=== PATIENT | female | born 1980 | race Caucasian/White ===

== ENCOUNTER → 2019-06-19 14:15 | Outpatient (BNVA) | payer OTHER, SELFPAY | PROVIDERS: Family Provider Nurse Practitioner; Visit Provider Family Medicine | DX: Z20.828 Contact with and (suspected) exposure to other viral communicable diseases (principal) | CPT/HCPCS: 87635 ==

== ENCOUNTER → 2019-07-03 13:43 | Outpatient (BNVA) | payer OTHER, SELFPAY | PROVIDERS: Family Provider Nurse Practitioner; Visit Provider Family Medicine | DX: Z20.828 Contact with and (suspected) exposure to other viral communicable diseases (principal) | CPT/HCPCS: 87635 ==

== ENCOUNTER → 2019-07-08 15:40 | Outpatient (BNVA) | payer OTHER, SELFPAY | PROVIDERS: Family Provider Nurse Practitioner; Visit Provider Family Medicine | DX: Z20.828 Contact with and (suspected) exposure to other viral communicable diseases (principal) | CPT/HCPCS: 87635 ==

== ENCOUNTER → 2019-07-20 10:00 | Outpatient (BNVA) | payer OTHER, SELFPAY | PROVIDERS: Family Provider Nurse Practitioner; Visit Provider Family Medicine | DX: Z20.828 Contact with and (suspected) exposure to other viral communicable diseases (principal) | CPT/HCPCS: 87635 ==

== ENCOUNTER → 2019-07-22 16:40 | Outpatient (BNVA) | payer OTHER, SELFPAY | PROVIDERS: Family Provider Nurse Practitioner; Visit Provider Emergency Medicine | DX: R05 Cough (principal); R50.9 Fever, unspecified; R06.02 Shortness of breath | CPT/HCPCS: 71046 ==

== ENCOUNTER 2019-07-23 18:42 | Emergency (ER) | payer OTHER, SELFPAY ==
--- NOTE | 2019-07-23 18:52 | XR_ITS ---
WS: [id number] CHEST 2 VIEWS HISTORY: Acute onset chest pain. COMPARISON: 07/22/2019 Lungs: Clear with no abnormality. No pleural effusion or pneumothorax. Cardiac size: Normal. Mediastinum/Aorta: Densely calcified lymph nodes at the RIGHT hilum. There is an additional calcifica tion projecting over the RIGHT upper abdomen. This is calcification probably within the liver. Bones: RIGHT convex curvature thoracolumbar spine. XR/XR chest 2V* [id number] IMPRESSION: Stable chest with no acute cardiopulmonary disease.
[2019-07-23 18:56] VITALS: BP 128/97; PULSE 106; RESP 19; TEMP 36.7; O2SAT 99; BMI 29.2
[2019-07-23 19:06] VITALS: BP 128/97; RESP 98; O2SAT 97
--- NOTE | 2019-07-23 19:20 | ED_ITS ---
HPI - SOB/Dyspnea General: Chief Complaint: Shortness of Breath/Dyspnea Stated Complaint: not feeling well post covid Time Seen by Provider: 07/23/19 19:05 History of Present Illness: HPI Narrative: 47-year-old female that just does not feel right . She was told to come to the ER by physician communication assistant and Eduard Perez. She was seen by this physician communication assistant yesterday in the office and had a chest x-ray was called today and told that it was normal and since she still was not feeling well to go to the ER. She tested positive for COVID-19 in late May or early June she was retested for times in total and tested negative yesterday. She is occasionally short of breath she is a smoker she has an inhaler at home that she occasionally uses. She has had an occasional cough over the last month or so it is not worsened. No fever. She states that her head and her body just feel off like they are in the clouds. She complains of sinus pressure and fullness especially when she bends over. No thick nasal drainage no history of sinus surgery. She was started on amoxicillin last week based on her symptoms of cough and shortness of breath by the PCP and Eduard Perez. MD elicited complaint: shortness of breath and cough Associated symptoms: Reports dizziness; Deny abdominal pain, chest pain, fever(s), nausea, polyuria or vomiting Review of Systems General: Reports: 10 or more systems reviewed and unremarkable except in HPI and below Const: Denies: fever(s) or chills Eyes: Denies: change in vision ENMT: Reports: nasal congestion; Denies: throat pain Card: Denies: chest pain Resp: Reports: dyspnea and productive cough GI: Denies: abdominal pain, nausea, vomiting or change in bowel habits : Denies: difficulty voiding Musc: Denies: muscle weakness Skin/Breast: Denies: rash Neuro: Reports: dizziness; Denies: headache(s) Psych: Denies: hopelessness or suicidal ideation Endo: Denies: polyuria Beau/Lymph: Denies: easy bruising or easy bleeding All/Imm: Denies: urticaria PFSH ED PFSH: Social History Smoking and tobacco status: current every day smoker Physical Exam Const: COMMON NORMALS: no acute distress, patient oriented x3, alert and well nourished HENMT: COMMON NORMALS: normocephalic and Normal external nose present HEAD & SCALP: normocephalic NOSE: Normal external nose present MOUTH: no trismus OTHER: Has some sinus tenderness to palpation over her frontal and m axillary sinuses Eye: COMMON NORMALS: EOMs intact bilaterally and conjunctivae normal CONJUNCTIVA: Yes conjunctivae normal Neck/C-Spine: COMMON NORMALS: full ROM, no lymphadenopathy and supple CERVICAL SPINE: Yes cervical ROM normal Lymph: LYMPHATIC: no lymphadenopathy noted Resp: COMMON NORMALS: normal respiratory effort, No retractions, No use of accessory muscles and clear to auscultation bilaterally EFFORT & INSPECTION: Yes able to speak in complete sentences AUSCULTATION: clear to auscultation bilaterally Cardio: COMMON NORMALS: regular rate and regular rhythm RATE: regular rate RHYTHM: regular rhythm GI: COMMON NORMALS: Normal to inspection, nondistended, normoactive bowel sounds present, Soft to palpation, non-tender and no masses INSPECTION: Yes normal to inspection AUSCULTATION: Yes normoactive bowel sounds PALPATION: Yes Soft to palpation, No Guarding due to palpation present (GI) and No Rigid due to palpation Back/Pelvis: OTHER: Normal range of motion Extremity: GENERAL: Yes normal exam except as noted Neuro: COMMON NORMALS: patient oriented x3 and CN's II-XII intact bilaterally SENSORIUM/ORIENTATION: Yes alert SPEECH: speech normal Psych: COMMON NORMALS: mental status grossly normal Skin: COMMON NORMALS: no rashes or lesions noted GENERAL SKIN EXAM: no rashes or lesions noted Course Vital Signs: Vital signs: Vital Signs Temperature 98.1 F 07/23/19 18:56 Pulse Rate 106 H 07/23/19 18:56 Respiratory Rate 98 H 07/23/19 19:06 Blood Pressure 128/97 07/23/19 19:06 Pulse Oximetry 97 07/23/19 19:06 MDM - SOB/Dyspnea MDM Narrative: Medical decision making narrative: Went to update patient on her lab results and CT results including the dental caries on CT scan. She now tells me that she was taken off the amoxicillin and started on Levaquin for presumed infection. I told her we will put her back on amoxicillin for dental caries and she needs to follow-up with a dentist. She can stop the Levaquin. She states she understands and will do that she is nontoxic and [id number] at this time she still feels under the weather and I explained that it is still likely part of her recovery from COVID-19 even though she tested negative does not mean that she is back to 100%. Lab Data: Attestation: I reviewed the patient's lab results. Labs: Lab Results 07/23/19 07/23/19 Range/Units 19:45 19:45 WBC 8.2 (4.0-10.0) 10^3/ uL RBC 4.85 (4.1-5.3) 10^6/u L Hgb 14.1 (11.5-15.3) g/dL Hct 44.8 (37.0-47.0) % MCV 92.4 (81-99) fL MCH 29.1 (28.0-34.0) pg MCHC 31.5 (30.0-36.0) g/dL RDW 12.8 (12.1-15.1) % Plt Count 366 (130-400) 10^3/c mm MPV 11.3 H (7.4-10.4) fL Neut % (Auto) 55.0 % Lymph % (Auto) 32.8 % [place] % (Auto) 9.5 % Eos % (Auto) 2.1 % Baso % (Auto) 0.5 % Neut # (Auto) 4.5 (1.8-7.7) 10^3/u L Lymph # (Auto) 2.7 (0.8-4.8) 10^3/u L [place] # (Auto) 0.8 (0.2-0.9) 10^3/u L Eos # (Auto) 0.2 (0.0-0.8) 10^3/u L Baso # (Auto) 0.0 (0.0-0.1) 10^3/u L Nucleated RBC % (a uto) 0 % Nucleated RBCs # 0.0 /100WBC Sodium 139 (136-145) mmol/L Potassium 4.0 (3.5-5.1) mmol/L Chloride 102 (98-107) mmol/L Carbon Dioxide 26 (22-29) mmol/L Anion Gap 15.0 (5-19) BUN 7 (6-20) mg/dL Creatinine 0.8 (0.5-0.9) mg/dL GFR Calculation 79.4 L (90-130) mL/min Glucose 85 (65-115) mg/dL Calculated Osmolal ity 283 L (285-295) mOsm/k g Calcium 9.1 (8.5-10.5) mg/dL Total Bilirubin 0.2 (0.15-1.2) mg/dL AST 18 (0-32) U/L ALT 20 (0-33) U/L Alkaline Phosphata se 120 H (35-105) IU/L Total Protein 7.7 (6.6-8.7) g/dL Albumin 4.6 (3.5-5.2) g/dL Globulin 3.1 (1.3-4.6) g/dL Imaging Data^: CXR: Attestation: I personally reviewed and interpreted this imaging study as follows: My impression: Normal exam. No pneumonia no acute abnormality. ct sinus: Radiologist's impression: Signed Patient: Stanton Neff #: [id number] : 1980Acct#:[id number] Age/Sex: 39 / FADM Date: 07/23/19 Loc: [facility]/Bed: Attending Dr: Ordering Provider/Ordering MD: Lis Judge MD Date of Service: 07/23/19 Procedure(s): CT sinus wo con* [id number] Accession Number(s): [id number] Report Number: [id number] PROCEDURE INFORMATION: Exam: CT Maxillofacial Without Contrast, Sinus Exam date and time: 07/23/2019 7:37 PM Age: 39 years old Clinical indication: Sinusitis; Acute; Patient HX: Sinus pressure; Additional info: Sinus pressure, SOA recent covid now neg TECHNIQUE: Imaging protocol: CT Maxillofacial without contrast. Focus on the sinuses. Radiation optimization: All CT scans at this facility use at least one of these dose optimization techniques: automated exposure control; mA and/or kV adjustment per patient size (includes targeted exams where dose is matched to clinical indication); or iterative reconstruction. COMPARISON: No relevant prior studies available. RADIATION DOSE METRICS: Total DLP: 555.31 mGy-cm FINDINGS: Frontal sinuses: Normal. No air-fluid levels. Ethmoid air cells: Normal. No air-fluid levels. Sphenoid sinuses: There is a small mucous retention cyst in the left sphenoid sinus. Maxillary sinuses: The ostia of the maxillary antra are patent. Orbits: Orbits are normal. Globes are unremarkable. Nasal cavity/Septum: There is mild nasal septal deviation towards the right. Dental: There are lucencies in multiple teeth suggesting dental caries. These are not fully evaluated on this examination. Correlation with dental examination is suggested. Soft tissues: Unremarkable. Bones/joints: Unremarkable. CT/CT sinus wo con* [id number] IMPRESSION: 1. Small mucous retention cyst in the left sphenoid sinus. Paranasal sinuses are otherwise clear. 2. Dental caries Radiation Dose CTDIVOL = (mGy): DLP = 555.31 (mGy-cm) Dictated By:Gordon Jon Signed By:Cristofer Jonigned Date/Time:07/23/192027 DD/ 25 Discharge Plan Discharge Patient Disposition: Home, Self-Care Clinical Impression: Malaise and fatigue, Dental caries Condition: Stable Prescriptions: New amoxicillin 250 mg capsule 250 mg PO Q6H 10 Days Qty: 40 RF: 0 Patient Instructions: Dental Caries (Cavities), Fatigue (ED) Activity Restrictions/Additional Instructions: Stop taking the Levaquin and start taking the amoxicillin that I prescribed for your cavities. You need to call a dentist in follow-up for your multiple cavities soon as possible. Stay hydrated drink plenty of water and stay well rested. 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
--- NOTE | 2019-07-23 19:34 | CTR_ITS ---
PROCEDURE INFORMATION: Exam: CT Maxillofacial Without Contrast, Sinus Exam date and time: 07/23/2019 7:37 PM Age: 39 years old Clinical indication: Sinusitis; Acute; Patient HX: Sinus pressure; Additional info: Sinus pressure, SOA recent covid now neg TECHNIQUE: Imaging protocol: CT Maxillofacial without contrast. Focus on the sinuses. Radiation optimization: All CT scans at this facility use at least one of these dose optimization techniques: automated exposure control; mA and/or kV adjustment per patient size (includes targeted exams where dose is matched to clinical indication); or iterative reconstruction. COMPARISON: No relevant prior studies available. RADIATION DOSE METRICS: Total DLP: 555.31 mGy-cm FINDINGS: Frontal sinuses: Normal. No air-fluid levels. Ethmoid air cells: Normal. No air-fluid levels. Sphenoid sinuses: There is a small mucous retention cyst in the left sphenoid sinus. Maxillary sinuses: The ostia of the maxillary antra are patent. Orbits: Orbits are normal. Globes are unremarkable. Nasal cavity/Septum: There is mild nasal septal deviation towards the right. Dental: There are lucencies in multiple teeth suggesting dental caries. These are not fully evaluated on this examination. Correlation with dental examination is suggested. Soft tissues: Unremarkable. Bones/joints: Unremarkable. CT/CT sinus wo con* [id number] IMPRESSION: 1. Small mucous retention cyst in the left sphenoid sinus. Paranasal sinuses are otherwise clear. 2. Dental caries Radiation Dose CTDIVOL = (mGy): DLP = 555.31 (mGy-cm)
[2019-07-23 20:05] LABS: Basophils % 0.5 %; Eosinophils # 0.2 10^3/uL (0.0-0.8); Eosinophils % 2.1 %; Hematocrit 44.8 % (37.0-47.0); Hemoglobin 14.1 g/dL (11.5-15.3); Lymphocytes # 2.7 10^3/uL (0.8-4.8); Lymphocytes % 32.8 %; Mean Corpuscular HGB Conc 31.5 g/dL (30.0-36.0); Mean Corpuscular Hemoglobin 29.1 pg (28.0-34.0); Mean Corpuscular Volume 92.4 fL (81-99); Mean Platelet Volume 11.3 fL (7.4-10.4); Monocytes # 0.8 10^3/uL (0.2-0.9); Monocytes % 9.5 %; Neutrophils # 4.5 10^3/uL (1.8-7.7); Nucleated Red Blood Cells % 0 %; Platelet Count 366 10^3/cmm (130-400); Red Blood Count 4.85 10^6/uL (4.1-5.3); Red Cell Distribution Width 12.8 % (12.1-15.1); White Blood Count 8.2 10^3/uL (4.0-10.0)
[2019-07-23 20:16] LABS: Alanine Aminotransferase 20 U/L (0-33); Albumin Level 4.6 g/dL (3.5-5.2); Alkaline Phosphatase 120 IU/L (35-105); Aspartate Amino Transferase 18 U/L (0-32); Blood Urea Nitrogen 7 mg/dL (6-20); Calcium 9.1 mg/dL (8.5-10.5); Carbon Dioxide 26 mmol/L (22-29); Chloride 102 mmol/L (98-107); Globulin 3.1 g/dL (1.3-4.6); Glomerular Filtration Rate 79.4 mL/min (90-130); Glucose 85 mg/dL (65-115); Osmolality Calculated 283 mOsm/kg (285-295); Sodium 139 mmol/L (136-145); Total Bilirubin 0.2 mg/dL (0.15-1.2); Total Protein 7.7 g/dL (6.6-8.7)
[2019-07-23 21:35] VITALS: BP 115/91; PULSE 81; RESP 18; O2SAT 96
== END 2019-07-23 21:34 | disposition home or self-care (01) ==
PROVIDERS: Emergency Medicine; Emergency Provider Emergency Medicine
DX: R53.81 Other malaise (principal); R53.83 Other fatigue; K02.9 Dental caries, unspecified; F17.210 Nicotine dependence, cigarettes, uncomplicated
CPT/HCPCS: 12345; 36415; 70486; 71046; 80053; 85025; 99281; 99283

== ENCOUNTER → 2020-01-18 11:37 | Outpatient (BNVA) | payer OTHER, SELFPAY | PROVIDERS: Family Provider Nurse Practitioner; Visit Provider Nurse Practitioner Family | DX: Z11.59 Encounter for screening for other viral diseases (principal); Z20.828 Contact with and (suspected) exposure to other viral communicable diseases; J06.9 Acute upper respiratory infection, unspecified | CPT/HCPCS: 87635 ==

== ENCOUNTER 2023-08-21 17:40 | Emergency (ER) | payer MEDICAID, SELFPAY ==
[2023-08-21 17:43] VITALS: BP 149/99; PULSE 71; RESP 18; TEMP 36.8; O2SAT 99; BMI 31.2
--- NOTE | 2023-08-21 17:57 | ECG_ITS ---
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 Measurements Intervals [place] Rate: 77 P: 64 NM: 191 QRS: 75 QRSD: 93 T: 7 QT: 378 QTc: 429 Interpretive Statements SINUS RHYTHM INCOMPLETE RIGHT BUNDLE BRANCH BLOCK [90+ ms QRS DURATION, TERMINAL R IN V1/V2, 40+ ms S IN I/aVL/V4/V5/V6] NONSPECIFIC T-WAVE ABNORMALITY No previous ECG available for comparison Electronically Signed On 08-22-2023 0:04:02 CDT by Harsh Leung M.D. [id number] f
--- NOTE | 2023-08-21 18:07 | XRR_ITS ---
PROCEDURE INFORMATION: Exam: XR Chest Exam date and time: 08/21/2023 6:41 PM Age: 43 years old Clinical indication: Pain; Chest pressure; Additional info: Chest pain TECHNIQUE: Imaging protocol: Radiologic exam of the chest. Views: 1 view. COMPARISON: CR XR chest 2V* [id number] 07/23/2019 7:21 PM FINDINGS: Lungs: Stable right calcified hilar nodes and/or mediastinal nodes and/or lung nodules consistent with old granulomatous disease. Pleural spaces: Unremarkable. No pleural effusion. No pneumothorax. Heart/Mediastinum: Unremarkable. No cardiomegaly. Bones/joints: Dextroscoliosis. Soft tissues: Continued dense breast shadows over the lung bases. XR/XR chest 1V portable [id number] IMPRESSION: No acute findings.
--- NOTE | 2023-08-21 18:08 | W.ED.SOB ---
HPI - SOB/Dyspnea General: Chief Complaint: Shortness of Breath/Dyspnea Stated Complaint: SOB Time Seen by Provider: 08/21/23 17:43 History of Present Illness: HPI Narrative: Patient presents to the ER by EMS with complaints of fatigue shortness of breath and chest pain. Patient says all he started yesterday and she went to the clinic they started her on some atenolol for blood pressure otherwise patient is on no medicine. Patient says currently she is not not that short of breath but she is very fatigued and is not actively having chest pain at this time. Patient has no history of cardiac or respiratory issues. Per the patient she just has high blood pressure was recently diagnosed and nothing else. Review of Systems General: Reports: 10 or more systems reviewed and unremarkable except in HPI and below PFSH ED PFSH: Medical History COVID-19 virus infection Social History Smoking and tobacco/nicotine status: current every day tobacco/nicotine user cigarettes Quit status (tobacco/nicotine): not considering quitting Second hand smoke exposure: Yes Alcohol intake: never Substance/Drug Use: never Current gender identity: Female Physical Exam Const: COMMON NORMALS: no acute distress, average body habitus, patient oriented x3, no limitations, healthy appearing, alert and well nourished HENMT: COMMON NORMALS: normocephalic, atraumatic, hearing grossly normal bilaterally, external ears normal, Normal external nose present and moist oral mucous membranes HEAD & SCALP: normocephalic and atraumatic NOSE: Normal external nose present EXTERNAL EAR: Yes external ears normal Neck/C-Spine: COMMON NORMALS: full ROM, no lymphadenopathy, supple, no meningeal signs, no JVD and Thyroid normal THYROID: Thyroid normal Chest: COMMONS NORMALS: normal inspection of the chest and normal palpation of entire chest wall Resp: COMMON NORMALS: normal respiratory effort, No retractions, No use of accessory muscles and clear to auscultation bilaterally AUSCULTATION: clear to auscultation bilaterally Cardio: COMMON NORMALS: no JVD, regular rate, regular rhythm, S1 normal heart sound present, S2 normal heart sound present, No gallops present (Cardio), No clicks present (Cardio), No murmurs present (Cardio) and No rub (Cardio) RATE: regular rate RHYTHM: regular rhythm HEART SOUNDS: S1 normal heart sound present and S2 normal heart sound present GI: COMMON NORMALS: Normal to inspection, nondistended, normoactive bowel sounds present, Soft to palpation, non-tender, No hepatosplenomegaly present and no masses PALPATION: Yes Soft to palpation and Yes No hepatosplenomegaly present Neuro: COMMON NORMALS: patient oriented x3 SENSORIUM/ORIENTATION: Yes alert MENINGEAL SIGNS: Yes no meningeal signs Course Vital Signs: Vital signs: Vital Signs Temperature 98.2 F 08/21/23 17:43 Pulse Rate 71 08/21/23 17:43 Respiratory Rate 18 08/21/23 17:43 Blood Pressure 149/99 08/21/23 17:43 Pulse Oximetry 99 08/21/23 17:43 Oxygen Delivery Me thod Room Air 08/21/23 17:43 MDM - SOB/Dyspnea Medical Decision Making Lab work was obtained which included CBC CMP urinalysis chest x-ray, serial troponins, all of which was essentially unremarkable. Patient says she just recently started on atenolol and this may be causing her to be tired and fatigued as it lowers your heart rate. This was discussed with the patient patient will be discharged back to her family practice doctor. She was told not to take any more Tylenol until she follows up with them. Differential Diagnosis Unlikely acute exacerbation of chronic obstructive airways disease, congestive heart failure, community acquired pneumonia, asthma with exacerbation or pulmonary embolism Medical Records I reviewed the patient's medical records. Lab Data I reviewed the patient's lab results. 08/21/23 18:18 08/21/23 18:18 Labs/Radiology: Radiology Impressions Chest X-Ray 08/21/23 18:07 IMPRESSION: No acute findings. Laboratory Results WBC 9.68 10^3/uL (3.29-11.43) 08/21/23 18:18 RBC 4.77 10^6/uL (3.85-5.65) 08/21/23 18:18 Hgb 14.30 g/dL (11.27-16.99) 08/21/23 18:18 Hct 43.4 % (36-47) 08/21/23 18:18 MCV 91.0 fl (85-98) 08/21/23 18:18 MCH 30.0 pg (27-33) 08/21/23 18:18 MCHC 32.9 g/dL (30-55) 08/21/23 18:18 RDW 12.4 % (12.1-15.1) 08/21/23 18:18 Plt Count 299 10^3/cmm (157-399) 08/21/23 18:18 MPV 11.3 fL (7.4-10.4) H 08/21/23 18:18 Neut % (Auto) 55.2 % 08/21/23 18:18 Lymph % (Auto) 35.7 % 08/21/23 18:18 [place] % (Auto) 6.4 % 08/21/23 18:18 Eos % (Auto) 2.0 % 08/21/23 18:18 Baso % (Auto) 0.6 % 08/21/23 18:18 Neut # (Auto) 5.34 10^3/uL (1.8-7.7) 08/21/23 18:18 Lymph # (Auto) 3.5 10^3/uL (0.8-4.8) 08/21/23 18:18 [place] # (Auto) 0.6 10^3/uL (0.2-0.9) 08/21/23 18:18 Eos # (Auto) 0.2 10^3/uL (0.0-0.8) 08/21/23 18:18 Baso # (Auto) 0.1 10^3/uL (0.0-0.1) 08/21/23 18:18 Nucleated RBC % (auto) 0 % 08/21/23 18:18 Nucleated RBCs # 0.0 /100WBC 08/21/23 18:18 Sodium 139 mmol/L (136-145) 08/21/23 18:18 Potassium 3.7 mmol/L (3.5-5.1) 08/21/23 18:18 Chloride 104 mmol/L (98-107) 08/21/23 18:18 Carbon Dioxide 22 mmol/L (22-29) 08/21/23 18:18 Anion Gap 16.7 (5-19) 08/21/23 18:18 BUN 9 mg/dL (6-20) 08/21/23 18:18 Creatinine 0.6 mg/dL (0.5-0.9) 08/21/23 18:18 GFR Calculation 108.6 mL/min (90-130) 08/21/23 18:18 Glucose 93 mg/dL (65-115) 08/21/23 18:18 Calculated Osmolality 286 mOsm/kg (285-295) 08/21/23 18:18 Calcium 9.6 mg/dL (8.5-10.5) 08/21/23 18:18 Magnesium 1.8 mg/dL (1.7-2.3) 08/21/23 18:18 Total Bilirubin 0.3 mg/dL (0.15-1.2) 08/21/23 18:18 AST 17 U/L (0-32) 08/21/23 18:18 ALT 15 U/L (0-33) 08/21/23 18:18 Alkaline Phosphatase 133 U/L (35-105) H 08/21/23 18:18 Troponin T Baseline < 6 ng/L (0-10) 08/21/23 18:18 Troponin T 120 Minute 7.17 ng/L (0-10) 08/21/23 20:03 Delta Troponin T 1.37788 ABS# (0-10) 08/21/23 20:03 Total Protein 7.6 g/dL (6.6-8.7) 08/21/23 18:18 Albumin 4.3 g/dL (3.5-5.2) 08/21/23 18:18 Globulin 3.3 g/dL (1.3-4.6) 08/21/23 18:18 TSH 1.23 uIU/mL (0.27-4.20) 08/21/23 18:18 Urine Color Yellow (Yellow) 08/21/23 17:50 Urine Appearance Clear (CLEAR) 08/21/23 17:50 Urine pH 5 (5-7) 08/21/23 17:50 Ur Specific [place] 1.000 (1.005-1.030) L 08/21/23 17:50 Urine Protein Neg (Negative) 08/21/23 17:50 Urine Glucose (UA) Norm (Normal) 08/21/23 17:50 Urine Ketones Negative (Negative) 08/21/23 17:50 Urine Blood Neg (Negative) 08/21/23 17:50 Urine Nitrate Negative (Negative) 08/21/23 17:50 Urine Bilirubin Neg (Negative) 08/21/23 17:50 Urine Urobilinogen Norm mg/dL (Negative) 08/21/23 17:50 Ur Leukocyte Esterase Negative (Negative) 08/21/23 17:50 All radiology interpretation(s) finalized by discharge EKG Data EKG 1: I personally reviewed and interpreted this EKG as follows: EKG Interpretation Date: 08/21/23 EKG interpretation time: 18:00 Interpretation: Ventricular rate 77 bpm, ME interval 191, QRS duration 93, QTc of 410, sinus rhythm Discharge Plan Discharge Patient Disposition: Home Clinical Impression: Shortness of breath Fatigue Qualifiers: Fatigue type: unspecified Qualified Code(s): R53.83 - Other fatigue Condition: Stable Prescriptions: No Action levofloxacin [Levaquin] 750 mg tablet 750 mg PO Q24H 7 Days Qty: 7 0RF benzonatate [Tessalon Perles] 100 mg capsule 100 mg PO TID PRN (Reason: cough) 10 Days Qty: 30 0RF [id number] [Bromfed DM] 2-30-10 mg/5 mL syrup 7.5 ml PO Q6H PRN (Reason: cold symptoms) Qty: 160 0RF fluticasone propionate [Flonase Allergy Relief] 50 mcg/actuation spray,suspension 1 spray INTRANASAL BID PRN (Reason: nasal congestion) Qty: 9.9 0RF Rx Instructions: administer into each nostril albuterol sulfate 90 mcg/actuation HFA aerosol inhaler 2 puff INHALATION Q6H PRN (Reason: shortness of breath or wheezing) Qty: 8.5 0RF Discharge Orders: Discharge ED (Routine); Ordered 08/21/23 Ordered By: Haseeb Patrick Patient Instructions: Fatigue, Shortness of Breath (ED) Activity Restrictions/Additional Instructions: Your evaluation in ER did not show any acute signs of your symptoms. Is thought it may be a side effect of your atenolol as this is a beta-mackenzie and slows your heart rate down and may cause fatigue. Please do not take any more of this medicine until you are seen by your primary care doctor who prescribed it. This may not be a good medicine for you and you may benefit from another medicine. 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
[2023-08-21 18:23] LABS: Basophils # 0.1 10^3/uL (0.0-0.1); Basophils % 0.6 %; Eosinophils # 0.2 10^3/uL (0.0-0.8); Hematocrit 43.4 % (36-47); Lymphocytes # 3.5 10^3/uL (0.8-4.8); Lymphocytes % 35.7 %; Mean Corpuscular HGB Conc 32.9 g/dL (30-55); Mean Platelet Volume 11.3 fL (7.4-10.4); Monocytes # 0.6 10^3/uL (0.2-0.9); Monocytes % 6.4 %; Neutrophils # 5.34 10^3/uL (1.8-7.7); Neutrophils % 55.2 %; Nucleated Red Blood Cells % 0 %; Platelet Count 299 10^3/cmm (157-399); Red Blood Count 4.77 10^6/uL (3.85-5.65); Red Cell Distribution Width 12.4 % (12.1-15.1); White Blood Count 9.68 10^3/uL (3.29-11.43)
[2023-08-21 18:28] LABS: Add Urine Microscopic? NO; Charge for UA Resulting for Rev
[2023-08-21 18:40] LABS: Urine Appearance Clear (CLEAR); Urine Color Yellow (Yellow); pH Urine 5 (5-7)
[2023-08-21 18:41] LABS: Bilirubin Urine Neg (Negative); Blood Urine Neg (Negative); Glucose Urine UA Norm (Normal); Ketones Urine Negative (Negative); Leukocyte Esterase Urine Negative (Negative); Nitrate Urine Negative (Negative); Protein Urine Neg (Negative); Urobilinogen Urine Norm (Negative)
[2023-08-21 18:42] LABS: Troponin(5th) Baseline < 6 ng/L (0-10)
[2023-08-21 18:49] LABS: Alanine Aminotransferase 15 U/L (0-33); Albumin Level 4.3 g/dL (3.5-5.2); Alkaline Phosphatase 133 U/L (35-105); Anion Gap 16.7 (5-19); Aspartate Amino Transferase 17 U/L (0-32); Blood Urea Nitrogen 9 mg/dL (6-20); Calcium 9.6 mg/dL (8.5-10.5); Carbon Dioxide 22 mmol/L (22-29); Chloride 104 mmol/L (98-107); Creatinine Clr Calc Pharmacy 124.3675; Globulin 3.3 g/dL (1.3-4.6); Glomerular Filtration Rate 108.6 mL/min (90-130); Glucose 93 mg/dL (65-115); Magnesium 1.8 mg/dL (1.7-2.3); Osmolality Calculated 286 mOsm/kg (285-295); Potassium 3.7 mmol/L (3.5-5.1); Sodium 139 mmol/L (136-145); Thyroid Stimulating Hormone 1.23 uIU/mL (0.27-4.20); Total Bilirubin 0.3 mg/dL (0.15-1.2); Total Protein 7.6 g/dL (6.6-8.7)
[2023-08-21 20:27] LABS: Troponin 5 2HR 7.17 ng/L (0-10); Troponin 5 2HR Delta 1.17001 ABS# (0-10)
[2023-08-21 21:24] VITALS: BP 149/99; PULSE 71; RESP 18; TEMP 36.8; O2SAT 99
== END 2023-08-21 21:25 | disposition home or self-care (01) ==
PROVIDERS: Emergency Provider Emergency Medicine
DX: R06.02 Shortness of breath (principal); R53.83 Other fatigue; F17.210 Nicotine dependence, cigarettes, uncomplicated
CPT/HCPCS: 36415; 71045; 80053; 81003; 83735; 84443; 84484; 85025; 93005; 99285

== ENCOUNTER 2023-08-25 08:58 | Emergency (ER) | payer MEDICAID, SELFPAY ==
[2023-08-25 08:59] VITALS: BP 128/102; PULSE 77; RESP 18; TEMP 36.9; O2SAT 100; BMI 31.0
--- NOTE | 2023-08-25 09:12 | W.ED.ALLEREA ---
HPI - Allergic Reaction General: Chief complaint: Allergic Reaction Stated complaint: ALLERGIC REACTION Time Seen by Provider: 08/25/23 09:05 History of Present Illness: HPI narrative: Patient presents to the ER by EMS with complaints of possible allergic reaction to azithromycin she started 2 days ago. She says she has been having fatigue shortness of breath and chest pressure. She was started on this for bronchitis. She was seen here in ER on 612 for similar symptoms of just recently starting atenolol. Since she is seeing her primary care doctor told her she may be allergic to atenolol and started her on the azithromycin for bronchitis. Review of Systems General: Reports: 10 or more systems reviewed and unremarkable except in HPI and below PFSH ED PFSH: Medical History COVID-19 virus infection Social History Smoking and tobacco/nicotine status: current every day tobacco/nicotine user cigarettes Quit status (tobacco/nicotine): not considering quitting Second hand smoke exposure: Yes Alcohol intake: never Substance/Drug Use: never Current gender identity: Female Physical Exam Const: COMMON NORMALS: no acute distress, average body habitus, patient oriented x3, no limitations, healthy appearing, alert and well nourished Neck/C-Spine: COMMON NORMALS: no JVD Chest: COMMONS NORMALS: normal inspection of the chest and normal palpation of entire chest wall Resp: COMMON NORMALS: normal respiratory effort, No retractions, No use of accessory muscles and clear to auscultation bilaterally AUSCULTATION: clear to auscultation bilaterally Cardio: COMMON NORMALS: no JVD, regular rate, regular rhythm, S1 normal heart sound present, S2 normal heart sound present, No gallops present (Cardio), No clicks present (Cardio), No murmurs present (Cardio) and No rub (Cardio) RATE: regular rate RHYTHM: regular rhythm HEART SOUNDS: S1 normal heart sound present and S2 normal heart sound present Neuro: COMMON NORMALS: patient oriented x3 SENSORIUM/ORIENTATION: Yes alert Course Vital Signs: Vital signs: Vital Signs Temperature 98.4 F 08/25/23 08:59 Pulse Rate 75 08/25/23 10:10 Respiratory Rate 18 08/25/23 08:59 Blood Pressure 115/84 08/25/23 10:10 Pulse Oximetry 97 08/25/23 10:10 Oxygen Delivery Me thod Room Air 08/25/23 08:59 MDM - Allergic Reaction Medical Decision Making Patient had lab work done and EKG ball was normal patient be discharged back to her PCP. Your lab work came back normal as well as your EKG, this may or may not be related to your azithromycin to please stop it and follow-up with your family practice physician on Saturday. Differential Diagnosis Likely allergic reaction and adverse reaction to drug Medical Records I reviewed the patient's medical records. Lab Data I reviewed the patient's lab results. 08/25/23 09:24 08/25/23 09:24 Laboratory Results WBC 8.26 10^3/uL (3.29-11.43) 08/25/23 09:24 RBC 4.99 10^6/uL (3.85-5.65) 08/25/23 09:24 Hgb 15.00 g/dL (11.27-16.99) 08/25/23 09:24 Hct 46.5 % (36-47) 08/25/23 09:24 MCV 93.2 fl (85-98) 08/25/23 09:24 MCH 30.1 pg (27-33) 08/25/23 09:24 MCHC 32.3 g/dL (30-55) 08/25/23 09:24 RDW 12.6 % (12.1-15.1) 08/25/23 09:24 Plt Count 315 10^3/cmm (157-399) 08/25/23 09:24 MPV 11.4 fL (7.4-10.4) H 08/25/23 09:24 Neut % (Auto) 64.0 % 08/25/23 09:24 Lymph % (Auto) 27.1 % 08/25/23 09:24 [place] % (Auto) 5.8 % 08/25/23 09:24 Eos % (Auto) 2.4 % 08/25/23 09:24 Baso % (Auto) 0.6 % 08/25/23 09:24 Neut # (Auto) 5.28 10^3/uL (1.8-7.7) 08/25/23 09:24 Lymph # (Auto) 2.2 10^3/uL (0.8-4.8) 08/25/23 09:24 [place] # (Auto) 0.5 10^3/uL (0.2-0.9) 08/25/23 09:24 Eos # (Auto) 0.2 10^3/uL (0.0-0.8) 08/25/23 09:24 Baso # (Auto) 0.1 10^3/uL (0.0-0.1) 08/25/23 09:24 Nucleated RBC % (auto) 0 % 08/25/23 09:24 Nucleated RBCs # 0.0 /100WBC 08/25/23 09:24 Sodium 143 mmol/L (136-145) 08/25/23 09:24 Potassium 4.4 mmol/L (3.5-5.1) 08/25/23 09:24 Chloride 106 mmol/L (98-107) 08/25/23 09:24 Carbon Dioxide 26 mmol/L (22-29) 08/25/23 09:24 Anion Gap 15.4 (5-19) 08/25/23 09:24 BUN 10 mg/dL (6-20) 08/25/23 09:24 Creatinine 0.7 mg/dL (0.5-0.9) 08/25/23 09:24 GFR Calculation 90.9 mL/min (90-130) 08/25/23 09:24 Glucose 93 mg/dL (65-115) 08/25/23 09:24 Calculated Osmolality 295 mOsm/kg (285-295) 08/25/23 09:24 Calcium 9.6 mg/dL (8.5-10.5) 08/25/23 09:24 Total Bilirubin 0.2 mg/dL (0.15-1.2) 08/25/23 09:24 AST 18 U/L (0-32) 08/25/23 09:24 ALT 15 U/L (0-33) 08/25/23 09:24 Alkaline Phosphatase 144 U/L (35-105) H 08/25/23 09:24 Troponin T Baseline < 6 ng/L (0-10) 08/25/23 09:24 Total Protein 7.7 g/dL (6.6-8.7) 08/25/23 09:24 Albumin 4.2 g/dL (3.5-5.2) 08/25/23 09:24 Globulin 3.5 g/dL (1.3-4.6) 08/25/23 09:24 No radiology studies performed this visit EKG Data EKG 1: I personally reviewed and interpreted this EKG as follows: EKG interpretation date: 08/25/23 EKG interpretation time: 09:52 Interpretation: Ventricular rate 79 bpm, VT interval 190, QRS duration 107, QTc of 402, sinus rhythm Discharge Plan Discharge Patient Disposition: Home Clinical Impression: Palpitation Condition: Stable Prescriptions: No Action levofloxacin [Levaquin] 750 mg tablet 750 mg PO Q24H 7 Days Qty: 7 0RF benzonatate [Tessalon Perles] 100 mg capsule 100 mg PO TID PRN (Reason: cough) 10 Days Qty: 30 0RF [id number] [Bromfed DM] 2-30-10 mg/5 mL syrup 7.5 ml PO Q6H PRN (Reason: cold symptoms) Qty: 160 0RF fluticasone propionate [Flonase Allergy Relief] 50 mcg/actuation spray,suspension 1 spray INTRANASAL BID PRN (Reason: nasal congestion) Qty: 9.9 0RF Rx Instructions: administer into each nostril albuterol sulfate 90 mcg/actuation HFA aerosol inhaler 2 puff INHALATION Q6H PRN (Reason: shortness of breath or wheezing) Qty: 8.5 0RF Discharge Orders: Discharge ED (Routine); Ordered 08/25/23 Ordered By: Haseeb Patrick Patient Instructions: Heart Palpitations Activity Restrictions/Additional Instructions: Please stop taking your azithromycin. This medicine may or may not be related to your symptoms. Please follow-up with your family practice physician on Saturday for further evaluation and treatment. Coding Level of Care Code ED Director Of [employer] for Kenneth Das
[2023-08-25 09:31] LABS: Basophils # 0.1 10^3/uL (0.0-0.1); Basophils % 0.6 %; Eosinophils # 0.2 10^3/uL (0.0-0.8); Eosinophils % 2.4 %; Hematocrit 46.5 % (36-47); Lymphocytes # 2.2 10^3/uL (0.8-4.8); Lymphocytes % 27.1 %; Mean Corpuscular HGB Conc 32.3 g/dL (30-55); Mean Corpuscular Hemoglobin 30.1 pg (27-33); Mean Corpuscular Volume 93.2 fl (85-98); Mean Platelet Volume 11.4 fL (7.4-10.4); Monocytes # 0.5 10^3/uL (0.2-0.9); Monocytes % 5.8 %; Neutrophils # 5.28 10^3/uL (1.8-7.7); Nucleated Red Blood Cells % 0 %; Platelet Count 315 10^3/cmm (157-399); Red Blood Count 4.99 10^6/uL (3.85-5.65); Red Cell Distribution Width 12.6 % (12.1-15.1); White Blood Count 8.26 10^3/uL (3.29-11.43)
--- NOTE | 2023-08-25 09:52 | ECG_ITS ---
[facility] Test Date: 2023-08-25 Pat Name: Valerie Neff Department: Room: Gender: Female [employer]: : 1980 Requested By: Haseeb Patrick Order Number: [id number] Eric MD: Harsh Leung M.D. Measurements Intervals [place] Rate: 79 P: 46 NH: 190 QRS: 25 QRSD: 107 T: 1 QT: 367 QTc: 422 Interpretive Statements SINUS RHYTHM POSSIBLE RIGHT VENTRICULAR CONDUCTION DELAY [RSR (QR) IN V1/V2] Compared to ECG 08/21/2023 17:57:36 Incomplete right bundle-branch block no longer present T-wave abnormality no longer present Electronically Signed On 08-25-2023 15:24:52 CDT by Harsh Leung M.D. [email or web address]
[2023-08-25 09:53] LABS: Alanine Aminotransferase 15 U/L (0-33); Albumin Level 4.2 g/dL (3.5-5.2); Alkaline Phosphatase 144 U/L (35-105); Anion Gap 15.4 (5-19); Aspartate Amino Transferase 18 U/L (0-32); Blood Urea Nitrogen 10 mg/dL (6-20); Calcium 9.6 mg/dL (8.5-10.5); Carbon Dioxide 26 mmol/L (22-29); Chloride 106 mmol/L (98-107); Creatinine Clr Calc Pharmacy 106.3067; Globulin 3.5 g/dL (1.3-4.6); Glomerular Filtration Rate 90.9 mL/min (90-130); Glucose 93 mg/dL (65-115); Osmolality Calculated 295 mOsm/kg (285-295); Potassium 4.4 mmol/L (3.5-5.1); Sodium 143 mmol/L (136-145); Total Bilirubin 0.2 mg/dL (0.15-1.2); Total Protein 7.7 g/dL (6.6-8.7)
[2023-08-25 09:54] LABS: Troponin(5th) Baseline < 6 ng/L (0-10)
[2023-08-25 10:10] VITALS: BP 115/84; PULSE 75; O2SAT 97
== END 2023-08-25 10:27 | disposition home or self-care (01) ==
PROVIDERS: Emergency Provider Emergency Medicine; PCP Family Medicine
DX: R00.2 Palpitations (principal); F17.210 Nicotine dependence, cigarettes, uncomplicated
CPT/HCPCS: 36415; 80053; 84484; 85025; 93005; 99284